=== PATIENT | female | born 1990 | race African-American/Black ===

== ENCOUNTER 2024-09-02 02:33 | Emergency (ER) | payer SELFPAY ==
[~2024-09-02] VITALS: Ht 170.2 cm; Wt 50.0 kg
[2024-09-02] MEDS ORDERED: IPRATROPIUM BROMIDE (0.02%) 0.5MG/2.5ML NEB HHN STA (02:47)
[2024-09-02] MEDS ORDERED: ALBUTEROL (0.083%) 2.5MG/3ML NEB HHN STA (02:47)
[2024-09-02] MEDS ORDERED: PREDNISONE 20MG TABLET PO STA (02:47)
[2024-09-02 03:01] VITALS: BP 148/76; PULSE 86; RESP 18; TEMP 36.8; O2SAT 100
[2024-09-02] MEDS ORDERED: ALBU90AE INH (05:02)
[2024-09-02] MEDS ORDERED: PRED10TA MT (05:02)
== END 2024-09-02 05:28 | disposition home or self-care (01) ==
LOC: ER 02:59
DX: J45.909 Unspecified asthma, uncomplicated (principal)
CPT/HCPCS: 99283; Z7610

== ENCOUNTER 2025-05-23 02:31 | Emergency (ER) | payer MEDICAID ==
[~2025-05-23] VITALS: Ht 165.1 cm; Wt 61.0 kg
[~2025-05-23 02:31] MED LIST: ALBU90AE INH; PRED10TA MT
[2025-05-23 02:36] VITALS: TEMP 36.7
[2025-05-23 02:52] VITALS: BP 124/80; O2SAT 95
[2025-05-23] MEDS: MAGNESIUM 2 G PREMIX 50 ML IV ONE (03:03)
[2025-05-23] MEDS: METHYLPREDNISOLONE SOD SUCC 125MG/2ML (ACT-O-VIAL) IV ONE (03:03)
[2025-05-23 03:33] VITALS: PULSE 102; RESP 18; O2SAT 98
[2025-05-23] MEDS: IPRATROPIUM BROMIDE (0.02%) 0.5MG/2.5ML NEB HHN ONE (03:33)
[2025-05-23] MEDS: ALBUTEROL (0.083%) 2.5MG/3ML NEB HHN ONE (03:33)
[2025-05-23 03:44] LABS: BASOPHILS % 0.4 % (0.0-2.0); EOSINOPHILS % 4.2 % (0.0-5.0); HEMATOCRIT. 31.5 % (36.0-48.0); HEMOGLOBIN. 9.9 g/dL (12.0-16.0); LYMPHOCYTES % 29.6 % (20.0-50.0); MEAN PLATELET VOLUME 8.4 fl (7.4-10.4); MONOCYTES % 5.8 % (2.0-8.0); NEUTROPHILS % 60.0 % (40.0-76.0); PLATELET 442 x1000/uL (130-400); RED BLOOD CELL COUNT 3.98 mill/uL (4.2-5.4); RED CELL DISTRIBUTION WIDTH 17.6 % (11.6-14.6)
[2025-05-23 04:02] LABS: CREATININE 0.6 mg/dL (0.6-1.0); UREA NITROGEN BLOOD 8 mg/dL (9-23)
== END 2025-05-23 05:49 | disposition left against medical advice (07) ==
LOC: ER 02:31 → EDBEDREQ 05:14 → EDBEDREQTM 05:14 → EDBEDREQSVC 05:14 → ENRESERV 05:18 → ER 05:49 → CMPBEDREQ 07:28
DX: J45.902 Unspecified asthma with status asthmaticus (principal); J93.9 Pneumothorax, unspecified; F12.90 Cannabis use, unspecified, uncomplicated; F17.200 Nicotine dependence, unspecified, uncomplicated; Z79.899 Other long term (current) drug therapy
CPT/HCPCS: 80048; 85025; 36415; 71045; 94640; 96365; 96366; 96375; 99291; J3475; J2919; Z7610 ×3; A4615; 94070